=== PATIENT | female | born 1940 | race Caucasian/White ===

== ENCOUNTER 2022-08-24 17:20 | Emergency (ER) | payer MEDICARE, SELFPAY ==
[2022-08-24 17:27] VITALS: BP 158/74; PULSE 86; RESP 20; TEMP 36.6; O2SAT 98; BMI 28.3
--- NOTE | 2022-08-24 17:47 | CRLHL7_ITS ---
For Patients: As a result of the Century Cures Act, medical imaging exams and procedure reports are released immediately into your electronic medical record. You may view this report before your referring provider. If you have questions, please contact your health care provider. INDICATION: Right flank pain. TECHNIQUE: CT abdomen and pelvis without contrast. COMPARISON: None. FINDINGS: Lower chest: Scattered atelectasis. Liver: Normal in size and attenuation. No suspicious masses. Gallbladder and bile ducts: Cholecystectomy. Pancreas: Unremarkable. No mass or inflammation. Spleen: Normal in size. No masses. Adrenal glands: Normal in size. No nodules. Kidneys: Normal in size. No suspicious masses, stones, or hydronephrosis. GI tract: Mild colonic stool burden. Colonic diverticulosis. Normal in caliber. No sign of mass or inflammation. Normal appendix. Vasculature: Mild aorto iliac arterial calcification. Abdominal aorta is normal in caliber. Lymph nodes: No lymphadenopathy. Peritoneum/Abdominal Wall: Tiny fat containing umbilical hernia. No sign of mass or infiltration. No free air or significant free fluid. Pelvis: Unremarkable. No pelvic masses. Bones: Degenerative changes. Grade 1 anterolisthesis of L4 on L5. IMPRESSION: No acute intra-abdominal/pelvic abnormality including obstructive uropathy.. Mild colonic stool burden. Colonic diverticulosis without diverticulitis. Please note that all CT scans at this facility use dose modulation, iterative reconstruction, and/or weight-based dosing when appropriate to reduce radiation dose to as low as reasonably achievable. Dictated by David Cuellar MD @ 08/24/2022 6:32:11 PM (Electronically Signed)
[2022-08-24 18:21] LABS: Lactate* 0.8 mmol/L (0.5-1.9)
[2022-08-24 18:22] LABS: Basophils Absolute Auto 0.05 K/uL (0.00-0.30); Basophils Percent Auto 0.7 % (0.0-3.0); Eosinophils Absolute Auto 0.15 K/uL (0.00-0.50); Eosinophils Percent Auto 2.2 % (0.0-7.0); Hematocrit 32.8 % (33.0-51.0); Hemoglobin* 10.8 gm/dL (12.0-16.0); Immature Granulocytes Abs Auto 0.01 K/uL (0.00-0.30); Immature Granulocytes Pct Auto 0.1 %; Lymphocytes Absolute Auto 2.87 K/uL (0.90-2.90); Lymphocytes Percent Auto 41.5 % (20-44); Mean Corpuscular HGB Conc 33 gm/dL (32-36); Mean Corpuscular Hemoglobin 31 pg (26-34); Mean Corpuscular Volume 94 fL (80-100); Monocytes Percent Auto 8.1 % (0.0-11.0); Neutrophils Absolute Auto 3.27 K/uL (1.7-7.0); Neutrophils Percent Auto 47.4 % (42.0-72.0); Platelet Count* 250 K/uL (140-440); RDW Coefficient of Variation % 12.2 % (11.5-15.5); Red Blood Count 3.48 m/uL (4.00-5.20); White Blood Count* 6.91 K/uL (4.50-11.00)
[2022-08-24 18:23] LABS: Appearance Urine Clear (Clear); Bilirubin Urine Negative (Negative); Blood Urine Negative (Negative); Color Urine Yellow (Yellow); Glucose Urine Negative (Negative); Ketones Urine Negative (Negative); Leukocyte Esterase Urine 1+ (Negative); Nitrite Urine Negative (Negative); Protein Urine 1+ (Negative); Urobilinogen Urine 0.2 (0.2-1.0); pH Urine 5.5 (5.0-8.5)
[2022-08-24 18:26] LABS: Slide Review Reflex No
[2022-08-24 18:33] LABS: RBC Urine 0-2 (0-2); Squamous Epithelial Cell Urine Few (None-Few)
[2022-08-24 18:42] LABS: Albumin* 4.4 g/dL (3.3-5.0); Chloride* 104 mmol/L (96-114)
[2022-08-24 18:43] LABS: Potassium* 4.3 mmol/L (3.6-5.1); Sodium* 138 mmol/L (135-149)
[2022-08-24 18:45] LABS: Alkaline Phosphatase* 66 U/L (40-150); Aspartate Amino Transferase* 25 U/L (12-35); Bilirubin Direct* 0.2 mg/dL (0.0-0.5); Bilirubin Total* 0.6 mg/dL (0.1-1.5); Blood Urea Nitrogen* 32 mg/dL (7-30); Carbon Dioxide* 28 mmol/L (20-32); Creatinine* 1.1 mg/dL (0.5-1.5); Est. Creatinine Clearance* 39.53; Estimated Glomerular Filt Rate 50 ml/min; Total Protein* 7.4 g/dL (6.0-8.3)
[2022-08-24 18:46] LABS: Alanine Aminotransferase* 19 U/L (4-35); Calcium* 9.1 mg/dL (8.4-10.6); Glucose* 134 mg/dL (60-115); Lipase* 144 U/L (23-300)
--- NOTE | 2022-08-24 18:47 | ED.GENADULT ---
HPI - General Adult General Chief complaint: Abdominal Pain Stated complaint: Pain in Right side Time Seen by Provider: 08/24/22 17:36 Source: patient Mode of arrival: ambulatory Limitations: no limitations History of Present Illness HPI narrative: 82-year-old female coming in today complaining of right-sided flank pain. Pain started yesterday. Pain does not migrate. Nothing seems to make it better or worse. She denies any nausea or vomiting. No fevers or chills. She denies any urinary symptoms such as increased frequency, urgency or dysuria. She denies any diarrhea or constipation. She denies injury to the area. She is status post cholecystectomy, no other intra-abdominal surgery. She also has history of hypertension which she is not taking any medications for at this time. She also has mild intermittent asthma also not on any medications, hypothyroidism for which she takes levothyroxine, osteopenia, hyperlipidemia she does take atorvastatin 2 times per week. Related Data Home Medications Medication Instructions Recorded Confirmed atorvastatin 10 mg tablet 10 mg PO .COMPLEX 08/24/22 08/24/22 levothyroxine 100 mcg tablet 100 mcg PO DAILY 08/24/22 08/24/22 (Euthyrox) Allergies Allergy/AdvReac Type Severity Reaction Status Date / Time bee venom protein (honey bee) Allergy Verified 08/24/22 17:32 codeine Allergy Verified 08/24/22 17:32 Review of Systems Status of ROS: Reports: 10 or more systems reviewed and unremarkable except as noted in History and below [facility] Social History Smoking Status: Never smoker Do you use any of these nicotine containing products: None How often do you have a drink containing alcohol: never AUDIT-C Alcohol total score: 0 Non-prescribed substance use: denies use Exam Narrative: Exam Narrative: Elderly, thin, well-developed patient in no acute distress. Alert and oriented x3. Answers questions appropriately. Thoughts are goal oriented and rational. No tangential or magical thinking noted. Patient speaks in full sentences without needing to catch her breath. HEENT: Normocephalic atraumatic. Pupils are equally round reactive to light. Extraocular muscles are intact. Conjunctivae are moist without any icterus noted. Moist mucous membranes. Neck is soft. Cardiovascular: Heart is regular rate and rhythm S1 and S2 are present with a soft 1/6 systolic murmur. Lungs: Clear to auscultation bilaterally no wheezes rhonchi or rales are appreciated. Patient takes deep breaths without any discomfort. Abdomen: Soft and nontender nondistended with normal bowel sounds. No guarding or rebound. No masses or organomegaly appreciated. She has minimal right flank discomfort that radiates into the right lower quadrant with palpation, however she is easily distractible. Extremities: Bilateral lower extremities are without edema. Skin: Well perfused without any obvious rashes. Const: Vital Signs, click to edit/add: Vital Signs - 24 hr 08/24/22 17:27 Temperature 97.8 F Pulse Rate [Pulse Oximeter] 86 Respiratory Rate 20 Blood Pressure [Ri ght Upper Arm] 158/74 H Pulse Oximetry 98 Oxygen Delivery Me thod Room Air Course Course Hospital Course: IV was established and labs were drawn. Labs fairly unremarkable-slightly low hemoglobin, minimally elevated BUN. Urinalysis had 1+ leukocyte esterase and 1+ protein. Abdominal CT showing constipation and no other significant abnormality that would cause her pain. Vital Signs Vital signs: Initial Vital Signs Temperature 97.8 F 08/24/22 17:27 Temperature Source Temporal Artery Scan 08/24/22 17:27 Pulse Rate 86 08/24/22 17:27 Respiratory Rate 20 08/24/22 17:27 Blood Pressure 158/74 H 08/24/22 17:27 Blood Pressure Mean 102 08/24/22 17:27 Blood Pressure Position Sitting 08/24/22 17:27 Pulse Oximetry 98 08/24/22 17:27 Oxygen Delivery Method Room Air 08/24/22 17:27 Vital Signs Temperature 97.8 F 08/24/22 17:27 Pulse Rate 86 08/24/22 17:27 Respiratory Rate 20 08/24/22 17:27 Blood Pressure 158/74 H 08/24/22 17:27 Pulse Oximetry 98 08/24/22 17:27 Oxygen Delivery Method Room Air 08/24/22 17:27 Temperature 97.8 F 08/24/22 17:27 Pulse Rate 86 08/24/22 17:27 Respiratory Rate 20 08/24/22 17:27 Blood Pressure 158/74 H 08/24/22 17:27 Pulse Oximetry 98 08/24/22 17:27 Oxygen Delivery Method Room Air 08/24/22 17:27 Medical Decision Making MDM Narrative Medical decision making narrative: 82-year-old female with right-sided flank and abdominal pain-likely constipation is the cause of her discomfort at this time. We discussed daily MiraLax increasing fluid intake. Patient and daughter were agreeable and had no other questions at this time. We discussed reasons for follow-up including worsening pain, vomiting, fevers. Differential diagnoses considered including kidney stone, pyelonephritis, UTI, abdominal wall-flank wall trauma, appendicitis, colitis. Medical Records Medical records reviewed: Yes I reviewed the patient's medical records Lab Data Lab results reviewed: Yes I reviewed the patient's lab results Labs: Lab Results 08/24/22 Range/Units 18:12 WBC 6.91 (4.50-11.00) K/uL RBC 3.48 L (4.00-5.20) m/uL Hgb 10.8 L (12.0-16.0) gm/dL Hct 32.8 L (33.0-51.0) % MCV 94 (80-100) fL MCH 31 (26-34) pg MCHC 33 (32-36) gm/dL RDW Coeff of Sofía 12.2 (11.5-15.5) % Plt Count 250 (140-440) K/uL Neut % (Auto) 47.4 (42.0-72.0) % Lymph % (Auto) 41.5 (20-44) % Love % (Auto) 8.1 (0.0-11.0) % Eos % (Auto) 2.2 (0.0-7.0) % Baso % (Auto) 0.7 (0.0-3.0) % Neut # (Auto) 3.27 (1.7-7.0) K/uL Lymph # (Auto) 2.87 (0.90-2.90) K/uL Love # (Auto) 0.60 (0.00-0.90) K/UL Eos # (Auto) 0.15 (0.00-0.50) K/uL Baso # (Auto) 0.05 (0.00-0.30) K/uL Sodium 138 (135-149) mmol/L Potassium 4.3 (3.6-5.1) mmol/L Chloride 104 (96-114) mmol/L Carbon Dioxide 28 (20-32) mmol/L BUN 32 H (7-30) mg/dL Creatinine 1.1 (0.5-1.5) mg/dL Estimated Creat Clear 39.53 Estimated GFR 50 ml/min Glucose 134 H (60-115) mg/dL Lactate 0.8 (0.5-1.9) mmol/L Calcium 9.1 (8.4-10.6) mg/dL Total Bilirubin 0.6 (0.1-1.5) mg/dL Direct Bilirubin 0.2 (0.0-0.5) mg/dL AST 25 (12-35) U/L ALT 19 (4-35) U/L Alkaline Phosphatase 66 (40-150) U/L C-Reactive Protein < 0.5 L (0.5-1.0) mg/dL Total Protein 7.4 (6.0-8.3) g/dL Albumin 4.4 (3.3-5.0) g/dL Lipase 144 (23-300) U/L Urine Color Yellow (Yellow) Urine Appearance Clear (Clear) Urine pH 5.5 (5.0-8.5) Ur Specific [place] 1.020 (1.000-1.030) Urine Protein 1+ A (Negative) Urine Glucose (UA) Negative (Negative) Urine Ketones Negative (Negative) Urine Blood Negative (Negative) Urine Nitrite Negative (Negative) Urine Bilirubin Negative (Negative) Urine Urobilinogen 0.2 (0.2-1.0) Ur Leukocyte Esterase 1+ A (Negative) Urine RBC 0-2 (0-2) Urine WBC 2-5 (0-5) Ur Squamous Epith Cells Few (None-Few) Urine Bacteria None (None) Imaging Data CT scan - abdomen: Attestation: I have reviewed the pertinent imaging results. Radiologist's impression: CT abdomen and pelvis without contrast. COMPARISON: None. FINDINGS: Lower chest: Scattered atelectasis. Liver: Normal in size and attenuation. No suspicious masses. Gallbladder and bile ducts: Cholecystectomy. Pancreas: Unremarkable. No mass or inflammation. Spleen: Normal in size. No masses. Adrenal glands: Normal in size. No nodules. Kidneys: Normal in size. No suspicious masses, stones, or hydronephrosis. GI tract: Mild colonic stool burden. Colonic diverticulosis. Normal in caliber. No sign of mass or inflammation. Normal appendix. Vasculature: Mild aorto iliac arterial calcification. Abdominal aorta is normal in caliber. Lymph nodes: No lymphadenopathy. Peritoneum/Abdominal Wall: Tiny fat containing umbilical hernia. No sign of mass or infiltration. No free air or significant free fluid. Pelvis: Unremarkable. No pelvic masses. Bones: Degenerative changes. Grade 1 anterolisthesis of L4 on L5. IMPRESSION: No acute intra-abdominal/pelvic abnormality including obstructive uropathy.. Mild colonic stool burden. Colonic diverticulosis without diverticulitis. Discharge Plan Discharge Clinical Impression: Abdominal pain, Constipation Patient Disposition: Home, Self-Care Condition: Stable Additional Instructions: Recommend you increase your daily fluid intake. Can also start a daily MiraLax-1 scoop full per day. If you are not feeling better in the next several days, recommend you follow-up with your primary care provider. You should return to the emergency department if you develop worsening pain, vomiting or fevers. Prescriptions: No Action levothyroxine [Euthyrox] 100 mcg tablet 100 mcg PO DAILY atorvastatin 10 mg tablet 10 mg PO .COMPLEX Rx Instructions: 10 mg orally Every Saturday and Saturday; Follow Up/Referrals: Provider,Not a Local [Primary Care Provider] - Stand Alone Forms: [facility] [facility] Info Instructions
[2022-08-24 18:48] LABS: C Reactive Protein* < 0.5 mg/dL (0.5-1.0)
[2022-08-24 19:04] LABS: Erythrocyte SedimentationRate* 45 mm/hr (2-20)
== END 2022-08-24 19:13 | disposition home or self-care (01) ==
PROVIDERS: Emergency Provider Family Medicine
DX: R10.9 Unspecified abdominal pain (principal); K59.00 Constipation, unspecified
CPT/HCPCS: 36415; 74176; 80048; 80076; 81001; 83605; 83690; 85025; 85651; 86140; 87086; 99283; 99284